=== PATIENT | female | born 1955 | race Two or more races ===

== ENCOUNTER 2019-09-18 06:47 | Outpatient (CLI) | payer OTHER ==
[~2019-09-18 06:47] MED LIST: ASPIR-LOW81 MG PO; DIOVAN320 MG PO; HYDROCH PO; NORVASC10 MG PO
== END 2019-09-18 06:56 | disposition home or self-care (01) ==
LOC: LAB 06:47
PROVIDERS: ATTEND Surgery
DX: D68.312 Antiphospholipid antibody with hemorrhagic disorder (principal); E72.12 Methylenetetrahydrofolate reductase deficiency; E72.11 Homocystinuria; I10 Essential (primary) hypertension; K85.10 Biliary acute pancreatitis without necrosis or infection; I26.99 Other pulmonary embolism without acute cor pulmonale; K80.51 Calculus of bile duct without cholangitis or cholecystitis with obstruction; I80.221 Phlebitis and thrombophlebitis of right popliteal vein

== ENCOUNTER 2019-12-20 07:35 | Day surgery (SDC) | payer OTHER ==
[2019-12-20] MEDS ORDERED: PEPCID AC20 MG PO (10:47)
[2019-12-20] MEDS ORDERED: PERCOCET 5-3251 EACH PO (10:47)
[2019-12-20] MEDS ORDERED: DICY20TA PO (10:48)
[2019-12-20] MEDS ORDERED: ZOFRAN8 MG PO (10:48)
== END 2019-12-20 14:51 | disposition home or self-care (01) ==
LOC: CIR.AMB 07:35
PROVIDERS: ATTEND Surgery
DX: K80.10 Calculus of gallbladder with chronic cholecystitis without obstruction (principal); Z20.828 Contact with and (suspected) exposure to other viral communicable diseases

== ENCOUNTER 2020-08-26 07:22 | Outpatient (CLI) | payer OTHER ==
[~2020-08-26 07:22] MED LIST changes: +DICY20TA PO; +PEPCID AC20 MG PO; +PERCOCET 5-3251 EACH PO; +ZOFRAN8 MG PO
== END 2020-08-26 18:00 | disposition home or self-care (01) ==
LOC: LAB 07:22
PROVIDERS: ATTEND Internal Medicine Hematology & Oncology
DX: D68.61 Antiphospholipid syndrome (principal); K81.1 Chronic cholecystitis; I10 Essential (primary) hypertension; K85.10 Biliary acute pancreatitis without necrosis or infection; I26.99 Other pulmonary embolism without acute cor pulmonale